=== PATIENT | male | born 1950 | race Caucasian/White ===

== ENCOUNTER → 2017-04-06 | Outpatient (CLI) | payer MEDICARE ==
[2017-04-07 08:55] LABS: ABSOLUTE BASOPHILS # (AUTO) 0.1 10^3/uL (0.0-0.2); ABSOLUTE LYMPHOCYTES (AUTO) 1.3 10^3/uL (0.5-4.7); ABSOLUTE MONOCYTES (AUTO) 0.8 10^3/uL (0.1-1.4); ABSOLUTE NEUT (AUTO) 4.8 10^3/uL (1.7-8.2); BASOPHILS % (AUTO) 1.4 % (0-2); EOSINOPHILS % (AUTO) 21.8 % (0-6); HEMATOCRIT 41.3 % (37.9-51.0); HEMOGLOBIN 13.5 g/dL (13.5-17.0); HGB HCT DIFFERENCE -0.8; LYMPHOCYTES % (AUTO) 14.9 % (13-45); MEAN CORPUSCULAR HEMOGLOBIN 29.9 pg (27.0-33.4); MEAN CORPUSCULAR HGB CONC 32.6 g/dL (32.0-36.0); MEAN CORPUSCULAR VOLUME 92 fl (80-97); MONOCYTES % (AUTO) 9.3 % (3-13); SEGMENTED NEUTROPHILS % (AUTO) 52.6 % (42-78); WHITE BLOOD COUNT 9.1 10^3/uL (4.0-10.5)
[2017-04-08 09:30] LABS: CALCIUM 9.2 mg/dL (8.4-10.2)
[2017-04-08 09:31] LABS: ALANINE AMINOTRANSFERASE 22 U/L (21-72); ALKALINE PHOSPHATASE 81 U/L (38-126); ANION GAP 10 (5-19); ASPARTATE AMINO TRANSFERASE 20 U/L (17-59); BILIRUBIN,DIRECT 0.4 mg/dL (0.0-0.4); BILIRUBIN,TOTAL 0.8 mg/dL (0.2-1.3); BLOOD UREA NITROGEN 21 mg/dL (7-20); CARBON DIOXIDE 26 mmol/L (22-30); CHLORIDE 109 mmol/L (98-107); CHOLESTEROL 164.18 mg/dL (0-200); CREATININE RESULT 1.14 mg/dL (0.52-1.25); GLUCOSE 89 mg/dL (75-110); POTASSIUM 4.8 mmol/L (3.6-5.0); SODIUM 144.6 mmol/L (137-145); TOTAL PROTEIN 7.2 g/dL (6.3-8.2); TRIGLYCERIDES 113 mg/dL (<150); VLDL CHOLESTEROL 22.6 mg/dL (10-31)
[2017-04-08 09:32] LABS: DIRECT LDL 84 mg/dL (<100); Direct HDL 48 mg/dL (>40)
== END ==
LOC: LAB 11:27
PROVIDERS: ATTEND Family Medicine
DX: E78.2 Mixed hyperlipidemia (principal); Z12.5 Encounter for screening for malignant neoplasm of prostate; I10 Essential (primary) hypertension; J44.1 Chronic obstructive pulmonary disease with (acute) exacerbation
CPT/HCPCS: 36415; 80053; 80061; 84153; 84443; 85025

== ENCOUNTER 2017-11-29 00:12 | Inpatient (IN) | payer MEDICARE ==
[2017-11-29] MEDS ORDERED: ALBUTEROL SULFATE 0.083% NEB 2.5 MG/3 ML AMPUL NEB ONE ×3 (00:19→02:31)
[2017-11-29] MEDS ORDERED: AZITHROMYCIN 250 MG TABLET PO ONE (00:20)
[2017-11-29] MEDS ORDERED: NORMAL SALINE 1000 ML 1,000 ML IV ONE (00:20)
--- NOTE | 2017-11-29 00:21 | ER Document Report ---
ED General - General Chief Complaint: Shortness Of Breath Stated Complaint: DIFFICULTY BREATHING Time Seen by Provider: 11/29/17 00:17 Notes: Patient is a 67-year-old male with a past medical history of COPD with baseline oxygen dependence at 2 L by nasal cannula at all times who presents with 6-7 hours of progressively worsening shortness of breath. Patient reports that he was using his nebulizers at home but that did not improve his symptoms. He states any form of exertion worsened his symptoms. He states this feels very similar to prior COPD exacerbations that he has had in the past. He denies any recent fever, nausea, vomiting, headache, neck pain or altered mental status. He has not seen his primary doctor regarding today's concerns. TRAVEL OUTSIDE OF THE [place] IN LAST 30 DAYS: No - Related Data Allergies/Adverse Reactions: No Known Allergies Allergy (Verified 03/25/16 12:01) Past Medical History - General Information source: Patient - Social History Smoking Status: Former Smoker Frequency of alcohol use: None Drug Abuse: None Family History: Reviewed & Not Pertinent - Past Medical History Cardiac Medical History: Reports: Hx Hypercholesterolemia, Hx Hypertension Denies: Hx Coronary Artery Disease, Hx Heart Attack Pulmonary Medical History: Reports: Hx COPD, Hx Pneumonia Denies: Hx Asthma, Hx Bronchitis, Hx Tuberculosis Neurological Medical History: Denies: Hx Cerebrovascular Accident, Hx Seizures Endocrine Medical History: Denies: Hx Graves' Disease GI Medical History: Reports: Hx Gastroesophageal Reflux Disease, Hx Hiatal Hernia Musculoskeltal Medical History: Reports Hx Arthritis, Reports Hx Multiple Sclerosis Traumatic Medical History: Reports: Hx Fractures - Right hand in the 90's Past Surgical History: Reports: Hx Tonsillectomy. Denies: Hx Herniorrhaphy, Hx Pacemaker - Immunizations Hx Diphtheria, Pertussis, Tetanus Vaccination: No Hx Pneumococcal Vaccination: 11/13/10 Review of Systems - Review of Systems Notes: Constitutional: Negative for fever. HENT: Negative for sore throat. Eyes: Negative for visual changes. Cardiovascular: Negative for chest pain. Respiratory: Positive for shortness of breath. Gastrointestinal: Negative for abdominal pain, vomiting or diarrhea. Genitourinary: Negative for dysuria. Musculoskeletal: Negative for back pain. Skin: Negative for rash. Neurological: Negative for headaches, weakness or numbness. 10 point ROS negative except as marked above and in HPI. Physical Exam - Vital signs Vitals: Resp Pulse Ox 24 H 97 01/09/18 00:16 11/29/17 00:16 Interpretation: Tachypneic Notes: PHYSICAL EXAMINATION: GENERAL: In mild respiratory distress otherwise well-appearing HEAD: Atraumatic, normocephalic. EYES: Pupils equal round and reactive to light, extraocular movements intact, sclera anicteric, conjunctiva are normal. ENT: nares patent, oropharynx clear without exudates. Moist mucous membranes. NECK: Normal range of motion, supple without lymphadenopathy LUNGS: Mildly diminished at the bases bilaterally. Faint expiratory wheezing in all lung flores. HEART: Regular rate and rhythm without murmurs ABDOMEN: Soft, nontender, normoactive bowel sounds. No guarding, no rebound. No masses appreciated. EXTREMITIES: Normal range of motion, no pitting or edema. No cyanosis. NEUROLOGICAL: No focal neurological deficits. Moves all extremities spontaneously and on command. PSYCH: Normal mood, normal affect. SKIN: Warm, Dry, normal turgor, no rashes or lesions noted. Course - Re-evaluation Re-evalutation: 11/29/17 00:20 Patient presents with mild tachypnea, wheezing in all lung flores, slightly diminished throughout but in only mild distress. He has very received magnesium , Solu-Medrol and 2 2 nebulizers prior to arrival. Given his ongoing wheezing he has been restarted on continuous nebulizers and will be reassessed frequently. 0040-patient continues to do well on nebulizers, lung exam relatively unchanged , continues with moderate tachypnea at 24 breaths per minute 11/29/17 01:35 Patient has begun to have marked worsening of his breathing over the last 10-15 minutes. He is now breathing 28-30 times a minute, markedly worsening wheezing in all lung flores. He is tripoding in the bed. Will be placed on BiPAP at this time. He has had a deterioration in his clinical status and is now considered to be critically ill. Will continue to reassess frequently. 11/29/17 02:22 Patient has had marked improvement on BiPAP. His heart rate continues to be mildly elevated relative to 10 presentation currently 114. However he is now saturating 90% on 40% FiO2, 12/6 settings. I will have discussed with Dr. Cohen who is accepted the patient for admission - Vital Signs Vital signs: Temp Pulse Resp BP Pulse Ox 19 118/80 97 11/29/17 01:01 01/09/18 01:01 11/29/17 01:01 - Laboratory Result Diagrams: 11/29/17 00:38 11/29/17 00:38 Laboratory results interpreted by me: 11/29/17 11/29/17 00:38 00:38 WBC 12.7 H Plt Count 479 H Lymphocytes % 11.0 L Eosinophils % 6.2 H Absolute Neutrophils 9.3 H Absolute Eosinophils 0.8 H BUN 34 H Glucose 138 H - Diagnostic Test Radiology reviewed: Image reviewed, Reports reviewed Radiology results interpreted by me: 11/29/17 02:23 Chest x-ray: Hyperinflated lungs but no acute infiltrate Critical Care Note - Critical Care Note Total time excluding time spent on procedures (mins): 35 Comments: Critical care time spent obtaining history from patient or surrogate, discussions with consultants, development of treatment plan with patient or surrogate, evaluation of patient's response to treatment, examination of patient , ordering and performing treatments and interventions, ordering and review of laboratory studies, re-evaluation of patient's condition, ordering and review of radiographic studies and review of old charts Discharge - Discharge Clinical Impression: Respiratory distress, COPD exacerbation Condition: Fair Disposition: ADMITTED INPATIENT Admitting Provider: [facility] Admitted: Telemetry
[2017-11-29 00:57] LABS: ABSOLUTE BASOPHILS # (AUTO) 0.1 10^3/uL (0.0-0.2); ABSOLUTE EOSINOPHILS # (AUTO) 0.8 10^3/uL (0.0-0.6); ABSOLUTE LYMPHOCYTES (AUTO) 1.4 10^3/uL (0.5-4.7); ABSOLUTE MONOCYTES (AUTO) 1.2 10^3/uL (0.1-1.4); ABSOLUTE NEUT (AUTO) 9.3 10^3/uL (1.7-8.2); ANION GAP 14 (5-19); BASOPHILS % (AUTO) 0.8 % (0-2); BLOOD UREA NITROGEN 34 mg/dL (7-20); CALCIUM 8.9 mg/dL (8.4-10.2); CARBON DIOXIDE 22 mmol/L (22-30); CHLORIDE 104 mmol/L (98-107); EOSINOPHILS % (AUTO) 6.2 % (0-6); GLUCOSE 138 mg/dL (75-110); HEMOGLOBIN 15.4 g/dL (13.5-17.0); MEAN CORPUSCULAR HEMOGLOBIN 30.2 pg (27.0-33.4); MEAN CORPUSCULAR HGB CONC 33.6 g/dL (32.0-36.0); MEAN CORPUSCULAR VOLUME 90 fl (80-97); MONOCYTES % (AUTO) 9.1 % (3-13); PLATELET COUNT 479 10^3/uL (150-450); POTASSIUM 4.1 mmol/L (3.6-5.0); RED CELL DISTRIBUTION WIDTH 12.8 % (11.5-14.0); SEGMENTED NEUTROPHILS % (AUTO) 72.9 % (42-78); SODIUM 139.8 mmol/L (137-145); TOTAL CELLS COUNTED % (AUTO) 100 %; WHITE BLOOD COUNT 12.7 10^3/uL (4.0-10.5)
--- NOTE | 2017-11-29 01:40 | RADIOLOGY REPORT (SQ) ---
EXAM DESCRIPTION: CHEST SINGLE VIEW CLINICAL HISTORY: sob COMPARISON: 03/01/2016 FINDINGS: Single frontal view of the chest. Apical scar calcification of the aortic arch. Heart is not enlarged. No consolidation, pneumothorax, or pleural effusion. No displaced rib fractures identified. Upper abdominal soft tissues are unremarkable. IMPRESSION: 1. No acute pulmonary process identified.
[2017-11-29] MEDS ORDERED: CEFTRIAXONE 1 GM/D5W RTU 1 GM/50 ML RTUPB IV ONE (02:22)
[2017-11-29] MEDS ORDERED: DILTIAZEM HCL 60 MG TABLET PO ONE (02:23)
[2017-11-29] MEDS ORDERED: IPRATROPIUM/ALBUTEROL 0.5-2.5 MG/3 ML AMPUL NEB PRN (02:24)
[2017-11-29] MEDS ORDERED: ACETAMINOPHEN 325 MG TABLET PO PRN (02:24)
[2017-11-29] MEDS ORDERED: CHLORPHENIRAMINE MALEATE 4 MG TABLET PO ONE (02:27)
[2017-11-29] MEDS ORDERED: KETOROLAC TROMETHAMINE INJ/PF 30 MG/1 ML SDV IV PRN (02:27)
[2017-11-29] MEDS ORDERED: HYDRALAZINE HCL INJ/PF 20 MG/1 ML SDV IV PRN (02:27)
[2017-11-29] MEDS ORDERED: DILTIAZEM HCL 60 MG TABLET PO SCH (02:30)
[2017-11-29] MEDS ORDERED: CEFEPIME 1 GM/D5W RTU 1 GM/50 ML RTUPB IV ONE (02:45)
[2017-11-29] MEDS ORDERED: FLUTICASONE NASAL SPRAY 50 MCG/SPRY 120 SPRAY/16 GM NASL ONE (02:45)
[2017-11-29 05:25] LABS: HEMOGLOBIN 14.4 g/dL (13.5-17.0); MEAN CORPUSCULAR HEMOGLOBIN 30.3 pg (27.0-33.4); MEAN CORPUSCULAR HGB CONC 33.6 g/dL (32.0-36.0); MEAN CORPUSCULAR VOLUME 90 fl (80-97); PLATELET COUNT 422 10^3/uL (150-450); RED BLOOD COUNT 4.76 10^6/uL (4.35-5.55); RED CELL DISTRIBUTION WIDTH 12.8 % (11.5-14.0); WHITE BLOOD COUNT 11.4 10^3/uL (4.0-10.5)
[2017-11-29 05:39] LABS: ANION GAP 15 (5-19); BLOOD UREA NITROGEN 32 mg/dL (7-20); CARBON DIOXIDE 19 mmol/L (22-30); CHLORIDE 107 mmol/L (98-107); GLUCOSE 172 mg/dL (75-110); POTASSIUM 4.4 mmol/L (3.6-5.0); SODIUM 141.2 mmol/L (137-145)
[2017-11-29 06:12] LABS: ABSOLUTE LYMPHOCYTES# (MANUAL) 0.3 10^3/uL (0.5-4.7); ABSOLUTE MONOCYTES # (MANUAL) 0.1 10^3/uL (0.1-1.4); ABSOLUTE NEUTROPHILS# (MANUAL) 10.9 10^3/uL (1.7-8.2); BASOPHILS % (MANUAL) 0 % (0-2); EOSINOPHILS % (MANUAL) 0 % (0-6); LYMPHOCYTES % (MANUAL) 3 % (13-45); MONOCYTES % (MANUAL) 1 % (3-13); SEGMENTED NEUTROPHILS % (MAN) 96 % (42-78); TOTAL CELLS COUNTED 100
[2017-11-29 06:13] LABS: PLATELET COMMENT ADEQUATE; RBC MORPHOLOGY COMMENT NORMO-CYTIC/CHROMIC
--- NOTE | 2017-11-29 06:41 | EKG REPORT ---
SEVERITY:- BORDERLINE ECG - SINUS TACHYCARDIA BORDERLINE PROLONGED QT INTERVAL : Confirmed by: Mir Landrum MD 29-Nov-2017 06:40:24
--- NOTE | 2017-11-29 07:42 | PDOC H&P ---
History of Present Illness Admission Date/PCP: 11/29/17 02:29 Patient complains of: Shortness of breath and nonproductive cough History of Present Illness: DMITRIY MCKEON is a 67 year old male with a past medical history of COPD with oxygen dependence, chronic bronchitis. He denies fever, chest pain, rhinorrhea , postnasal drip, sore throat or uncontrolled GERD. In the emergency room he is found to have tachypnea, wheeze, oxygen saturations in the mid 80s on room air with leukocytosis. He started on BiPAP at 35% FiO2, albuterol and Atrovent , empiric antibiotics refer to the hospitalist for admission. Patient denies infectious contacts, antibiotics or recent illness. He admits feeling better after treatment initiated in the emergency room. Current vital signs are unremarkable. Past Medical History Cardiac Medical History: Reports: Hyperlipidema, Hypertension Denies: Coronary Artery Disease, Myocardial Infarction Pulmonary Medical History: Reports: Chronic Obstructive Pulmonary Disease (COPD) , Pneumonia Denies: Asthma, Bronchitis, Tuberculosis Neurological Medical History: Denies: Seizures GI Medical History: Reports: Gastroesophageal Reflux Disease, Hiatal Hernia Musculoskeltal Medical History: Reports: Arthritis Hematology: Denies: Anemia Past Surgical History Past Surgical History: Reports: Tonsillectomy Denies: Herniorrhaphy, Pacemaker Social History Information Source: Patient, Emergency Med Personnel, [facility] Records Smoking Status: Never Smoker Frequency of Alcohol Use: None Hx Recreational Drug Use: No Hx Prescription Drug Abuse: No - Advance Directive Resuscitation Status: Full Code Family History Family History: Hypertension Parental Family History Reviewed: Yes Children Family History Reviewed: Yes Sibling(s) Family History Reviewed.: Yes Medication/Allergy Allergies/Adverse Reactions: No Known Allergies Allergy (Verified 03/25/16 12:01) Review of Systems Constitutional: ABSENT: chills, fever(s), headache(s), weight gain, weight loss Eyes: ABSENT: visual disturbances Ears: ABSENT: hearing changes Cardiovascular: ABSENT: chest pain, dyspnea on exertion, edema, orthropnea, palpitations Respiratory: ABSENT: cough, hemoptysis Gastrointestinal: ABSENT: abdominal pain, constipation, diarrhea, hematemesis, hematochezia, nausea, vomiting Genitourinary: ABSENT: dysuria, hematuria Musculoskeletal: ABSENT: joint swelling Integumentary: ABSENT: rash, wounds Neurological: ABSENT: abnormal gait, abnormal speech, confusion, dizziness, focal weakness, syncope Psychiatric: ABSENT: anxiety, depression, homidical ideation, suicidal ideation Endocrine: ABSENT: cold intolerance, heat intolerance, polydipsia, polyuria Hematologic/Lymphatic: ABSENT: easy bleeding, easy bruising Physical Exam Vital Signs: Temp Pulse Resp BP Pulse Ox 97.6 F 15 123/62 97 11/29/17 06:36 11/29/17 06:01 11/29/17 06:01 11/29/17 06:01 Intake & Output 11/27/17 11/28/17 11/29/17 11:59 11:59 11:59 Weight 61.36 kg General appearance: PRESENT: no acute distress, well-developed, well-nourished Head exam: PRESENT: atraumatic, normocephalic Eye exam: PRESENT: conjunctiva pink, EOMI, PERRLA. ABSENT: scleral icterus Ear exam: PRESENT: normal external ear exam Mouth exam: PRESENT: moist, tongue midline Neck exam: ABSENT: carotid bruit, JVD, lymphadenopathy, thyromegaly Respiratory exam: PRESENT: accessory muscle use, prolonged expiratory phas, retraction, symmetrical, tachypnea, wheezes. ABSENT: rales, rhonchi, stridor Cardiovascular exam: PRESENT: RRR. ABSENT: diastolic murmur, rubs, systolic murmur Pulses: PRESENT: normal dorsalis pedis pul Vascular exam: PRESENT: normal capillary refill GI/Abdominal exam: PRESENT: normal bowel sounds, soft. ABSENT: distended, guarding, mass, organolmegaly, rebound, tenderness Rectal exam: PRESENT: deferred Extremities exam: PRESENT: full ROM. ABSENT: calf tenderness, clubbing, pedal edema Neurological exam: PRESENT: alert, awake, oriented to person, oriented to place , oriented to time, oriented to situation, CN II-XII grossly intact. ABSENT: motor sensory deficit Psychiatric exam: PRESENT: appropriate affect, normal mood. ABSENT: homicidal ideation, suicidal ideation Skin exam: PRESENT: dry, intact, warm. ABSENT: cyanosis, rash Results Laboratory Results: 11/29/17 04:55 11/29/17 04:55 11/29/17 11/29/17 04:55 04:55 WBC 11.4 H RBC 4.76 Hgb 14.4 Hct 43.0 MCV 90 MCH 30.3 MCHC 33.6 RDW 12.8 Plt Count 422 Seg Neutrophils % Not Reportable Lymphocytes % Not Reportable Monocytes % Not Reportable Eosinophils % Not Reportable Basophils % Not Reportable Absolute Neutrophils Not Reportable Absolute Lymphocytes Not Reportable Absolute Monocytes Not Reportable Absolute Eosinophils Not Reportable Absolute Basophils Not Reportable Sodium 141.2 Potassium 4.4 Chloride 107 Carbon Dioxide 19 L Anion Gap 15 BUN 32 H Creatinine 1.13 Est GFR ( Amer) > 60 Est GFR (Non-Af Amer) > 60 Glucose 172 H Calcium 9.0 Impressions: Chest X-Ray 11/29/17 00:20 IMPRESSION: 1. No acute pulmonary process identified. Assessment & Plan - Diagnosis (1) Respiratory distress Is this a current diagnosis for this admission?: Yes Plan: Telemetry observation, supplemental oxygen, trial of BiPAP, prednisone with albuterol and Atrovent (2) COPD exacerbation Is this a current diagnosis for this admission?: Yes Plan: Secondary to acute on chronic bronchitis, empiric antibiotics, flutter valve. Follow-up CBC consider additional imaging. - Time Time Spent: 30 to 50 Minutes - Inpatient Certification Medical Necessity: Need Close Monitoring Due to Risk of Patient Decompensation
[2017-11-29] MEDS: IPRATROPIUM/ALBUTEROL 0.5-2.5 MG/3 ML AMPUL NEB SCH ×3 (08:29→20:45)
[2017-11-29] MEDS: HEPARIN SOD (PORCINE) 5,000 UNIT/ML 1 ML SYRINGE SUBCUT SCH ×3 (09:48→22:46)
[2017-11-29] MEDS: GUAIFENESIN 600 MG TABLET.SA PO SCH ×2 (09:56→22:21)
[2017-11-29] MEDS: CEFEPIME 1 GM/D5W RTU 1 GM/50 ML RTUPB IV SCH ×2 (09:57→22:20)
[2017-11-29] MEDS: ASPIRIN 81 MG TABLET, ENT COATED PO SCH (09:57)
[2017-11-29] MEDS ORDERED: PREDNISONE 20 MG TABLET PO SCH (10:00)
[2017-11-29] MEDS ORDERED: FLUTICASONE NASAL SPRAY 50 MCG/SPRY 120 SPRAY/16 GM NASL SCH (10:00)
[2017-11-29] MEDS: FLUTICASONE NASAL SPRAY 50 MCG/SPRY 120 SPRAY/16 GM NASL SCH ×2 (10:14→22:20)
[2017-11-29] MEDS ORDERED: PREDNISONE 20 MG TABLET PO ONE (21:58)
[2017-11-29] MEDS: BENZONATATE 100 MG CAPSULE PO PRN (22:19)
[2017-11-30] MEDS: IPRATROPIUM/ALBUTEROL 0.5-2.5 MG/3 ML AMPUL NEB SCH ×2 (02:22→07:57)
[2017-11-30] MEDS: HEPARIN SOD (PORCINE) 5,000 UNIT/ML 1 ML SYRINGE SUBCUT SCH (05:31)
[2017-11-30 06:07] LABS: HEMATOCRIT 41.1 % (37.9-51.0); HEMOGLOBIN 13.7 g/dL (13.5-17.0); MEAN CORPUSCULAR HEMOGLOBIN 30.2 pg (27.0-33.4); MEAN CORPUSCULAR HGB CONC 33.4 g/dL (32.0-36.0); MEAN CORPUSCULAR VOLUME 91 fl (80-97); PLATELET COUNT 412 10^3/uL (150-450); RED BLOOD COUNT 4.54 10^6/uL (4.35-5.55); RED CELL DISTRIBUTION WIDTH 13.2 % (11.5-14.0); WHITE BLOOD COUNT 16.9 10^3/uL (4.0-10.5)
[2017-11-30 06:22] LABS: ANION GAP 13 (5-19); BLOOD UREA NITROGEN 34 mg/dL (7-20); CALCIUM 10.2 mg/dL (8.4-10.2); CARBON DIOXIDE 21 mmol/L (22-30); CHLORIDE 108 mmol/L (98-107); GLUCOSE 131 mg/dL (75-110); POTASSIUM 5.3 mmol/L (3.6-5.0)
[2017-11-30 06:27] LABS: ABSOLUTE LYMPHOCYTES# (MANUAL) 0.7 10^3/uL (0.5-4.7); ABSOLUTE MONOCYTES # (MANUAL) 0.3 10^3/uL (0.1-1.4); ABSOLUTE NEUTROPHILS# (MANUAL) 15.9 10^3/uL (1.7-8.2); BASOPHILS % (MANUAL) 0 % (0-2); EOSINOPHILS % (MANUAL) 0 % (0-6); LYMPHOCYTES % (MANUAL) 4 % (13-45); MONOCYTES % (MANUAL) 2 % (3-13); SEGMENTED NEUTROPHILS % (MAN) 94 % (42-78); TOTAL CELLS COUNTED 100
[2017-11-30 06:29] LABS: BURR CELLS SLIGHT; PLATELET COMMENT ADEQUATE; SCHISTOCYTES SLIGHT; TEAR DROP CELLS SLIGHT; TOXIC GRANULATION 1+
[2017-11-30 08:11] VITALS: BP 119/62
[2017-11-30] MEDS: ASPIRIN 81 MG TABLET, ENT COATED PO SCH (09:07)
[2017-11-30] MEDS: GUAIFENESIN 600 MG TABLET.SA PO SCH (09:07)
[2017-11-30] MEDS: BENZONATATE 100 MG CAPSULE PO PRN (09:07)
[2017-11-30] MEDS: CEFEPIME 1 GM/D5W RTU 1 GM/50 ML RTUPB IV SCH (09:07)
[2017-11-30] MEDS: FLUTICASONE NASAL SPRAY 50 MCG/SPRY 120 SPRAY/16 GM NASL SCH (09:09)
--- NOTE | 2017-11-30 09:53 | DISCHARGE SUMMARY E ---
Discharge Summary NAME: DMITRIY MCKEON : 1950 AGE: 67Y ADMITTED: 11/29/2017 DISCHARGED: 11/30/2017 CODE STATUS: FULL CODE. PRIMARY CARE PROVIDER: Dr. Ford DISCHARGE DIAGNOSES: Includes: 1. Chronic obstructive pulmonary disease exacerbation. 2. Acute asthmatic bronchitis. 3. Hyperlipidemia. 4. Hypertension. 5. Gastroesophageal reflux disease due to a hiatal hernia. 6. Osteoarthritis. 7. Acute on chronic hypoxemic respiratory failure. DISCHARGE MEDICATIONS: Include: 1. Prednisone 60 mg taper. 2. Mucinex 1200 mg p.o. q. 12 hours, a total of 12 tablets with 0 refills. 3. Doxycycline 100 mg p.o. b.i.d., 10 tablets, 0 refills. 4. Tessalon Perles 100 mg p.o. q. 8 hours p.r.n., 10 tablets, 0 refills. 5. Spiriva 1 puff inhalation daily. 6. Multivitamin 1 tablet p.o. daily. 7. Advair 500/50 one puff inhalation q. 12 hours. 8. Flonase 1 spray nasally b.i.d. 9. Aspirin 81 mg p.o. daily. 10. Ventolin HFA 2 puffs inhalation q. 6 hours p.r.n. DIET: As tolerated. ACTIVITY: As tolerated. Recommend incentive spirometry as well as flutter valve at home. DIAGNOSTICS: Lab values are as follows: Hematology obtained on 11/29/2017: WBCs are 12.7, hemoglobin is 15.4, hematocrit is 40.6, platelet count is 479,000. Chemistry obtained on 11/30/2017: Sodium is 142, potassium 5.3, chloride is 108, carbon dioxide 21, BUN 34, creatinine is 1.17, glucose 131, calcium is 10.2. EKG obtained on 11/29/2017 reveals sinus tachycardia. Chest x-ray obtained on 11/29/2017 reveals no acute cardiopulmonary process identified. PHYSICAL EXAMINATION: GENERAL: On examination, the patient is a well-developed, well-nourished 67-year-old male who is awake, alert, and oriented to person, place, time, and situation. He is verbal, conversational, does not appear to be in any acute distress. VITAL SIGNS: Temperature is 97.5, pulse 80, respirations 18, blood pressure is 119/62, oxygen saturation is 100% on room air. SKIN: Warm and dry. No rash. Not diaphoretic. HEENT: Pupils equal, round, and reactive to light and accommodation. Conjunctiva is pink. There is no evidence of JVP. CARDIOVASCULAR SYSTEM: Heart is regular. There is no murmur or rub. CHEST: Diminished, symmetrical, unlabored with faint wheezes noted in upper lung flores. PSYCHIATRIC: Appropriate affect, pleasant mood. ABDOMEN: Soft, nontender, nondistended. EXTREMITIES: No clubbing, cyanosis, edema. HISTORY OF PRESENT ILLNESS: The patient is a 67-year-old male with a past medical history of chronic obstructive pulmonary disease and hypertension. The patient presented to the emergency department with a chief complaint of shortness of breath and a nonproductive cough. The patient presented with significant tachypnea, wheezes with oxygen saturation in the mid 80s on room air with leukocytosis. The patient was started on a BiPAP in the emergency department at 35% FiO2 and was given Duonebs. The patient's condition did improve. Upon interview, the patient denied any fevers, chest pain, rhinorrhea, postnasal drip, sore throat, or uncontrolled GERD. Given that the patient did require BiPAP, he was referred to the hospitalist for admission and management. HOSPITAL COURSE: The patient was admitted to continuous telemetry unit. The patient was placed on steroids as well as antibiotic coverage. The patient responded very well to treatment, and within 24 hours, the patient was back on room air, able to fully complete sentences, was able to ambulate without significant dyspnea. The patient does admit to a strong cough that has not been producing any sputum. The patient has been participating in incentive spirometry as well as flutter valve. The patient's symptoms are "1000 times better" and the patient is quite eager for discharge. DISCHARGE PLANNING: The patient is to follow up with his primary care provider, Dr. Ford, within 1-2 weeks for hospital followup. Time spent on this discharge including assessment, plan, physical examination, patient education, review of records is 20 minutes. DICTATING PHYSICIAN: YEISON ZALDIVAR NP [id number] PHY#: [id number] ID: [id number] JOB#: [id number] ACCT: [id number] cc:Nickie PRAKASH NP >
[2017-11-30] MEDS ORDERED: FLUTICASONE NASAL SPRAY 50 MCG/SPRY 120 SPRAY/16 GM NASL SCH (10:00)
[2017-11-30] MEDS ORDERED: ASPIRIN 81 MG TABLET, CHEWABLE PO SCH (10:00)
[2017-11-30] MEDS ORDERED: FLUTICASONE/SALMETEROL DISKUS 500-50 MCG/DOSE IH SCH (10:00)
[2017-11-30] MEDS ORDERED: MULTIVITAMIN TABLET PO SCH (10:00)
[2017-11-30] MEDS ORDERED: PREDNISONE 20 MG TABLET PO SCH ×2 (10:00)
[2017-11-30] MEDS ORDERED: TIOTROPIUM BROMIDE DPI 5 CAP/KIT (18 MCG/CAP) IH SCH (10:00)
== END 2017-11-30 11:30 | disposition home or self-care (01) | DRG 190 ==
LOC: ER 00:12 → EH 02:29 → 4S 14:00
PROVIDERS: ADMIT Internal Medicine; ATTEND Internal Medicine
DX: J44.1 Chronic obstructive pulmonary disease with (acute) exacerbation (principal); J96.21 Acute and chronic respiratory failure with hypoxia; J45.901 Unspecified asthma with (acute) exacerbation; J44.0 Chronic obstructive pulmonary disease with (acute) lower respiratory infection; J20.9 Acute bronchitis, unspecified; E78.5 Hyperlipidemia, unspecified; I10 Essential (primary) hypertension; K21.9 Gastro-esophageal reflux disease without esophagitis; M19.90 Unspecified osteoarthritis, unspecified site; K44.9 Diaphragmatic hernia without obstruction or gangrene; Z99.81 Dependence on supplemental oxygen; Z87.891 Personal history of nicotine dependence
CPT/HCPCS: 36415; 71045; 80048; 85025; 93005; 93010; 94640; 94660; 94667; 94668; 94799; 96360; 99291; J0692; J1644; J3490; J7030; J7512; J7620

== ENCOUNTER → 2018-01-19 | Outpatient (CLI) | payer MEDICARE ==
--- NOTE | 2018-01-20 12:13 | RADIOLOGY REPORT (SQ) ---
EXAM DESCRIPTION: MRI HEAD COMBO COMPLETED DATE/TIME: 01/19/2018 10:44 pm REASON FOR STUDY: UNSPECIFIED VISUAL LOSS H54.7 UNSPECIFIED VISUAL LOSS COMPARISON: None. TECHNIQUE: Multiplanar imaging includes noncontrasted T1, T2, FLAIR, Diffusion with ADC map and post gadolinium contrast T1 sequences. Images stored on PACS. CONTRAST TYPE AND DOSE: 10 mL multi RENAL FUNCTION: GFR > 60. LIMITATIONS: None. FINDINGS: ANATOMY: No anomalies. Normal vascular flow voids. Pituitary fossa normal. CSF SPACES: Mild atrophy-induced prominence of CSF spaces and ventricles. CEREBRUM: High-signal intensity lesions scattered throughout the white matter on FLAIR imaging with d istribution suggesting chronic micro-vascular ischemic change. No evidence of hemorrhage, mass, extra axial fluid collection or acute ischemic change. No enhancing lesions. POSTERIOR FOSSA: No signal alteration. No hemorrhage. No edema, masses, or mass effect. Internal eoldia tory canals, cerebello-pontine angles, mastoids normal. No enhancing lesions. ORBITS: No masses. Globes normal. PARANASAL SINUSES: No fluid levels. Mucosa normal. DIFFUSION: Normal. No evidence of recent infarct. OTHER: No other significant finding. IMPRESSION: Mild ATROPHY AND CHRONIC MICRO-VASCULAR ISCHEMIC CHANGES. OTHERWISE UNREMARKABLE MRI OF THE BRAIN WITHOUT AND WITH INTRAVENOUS GADOLINIUM CONTRAST. EVIDENCE OF ACUTE STROKE: NO. TECHNICAL DOCUMENTATION: JOB ID: [id number] Seen- All Rights Reserved Reading location - IP/workstation name: [email or web address]
== END ==
LOC: RAD 20:10
PROVIDERS: ATTEND Family Medicine
DX: H54.7 Unspecified visual loss (principal); G31.9 Degenerative disease of nervous system, unspecified
CPT/HCPCS: 70553; 82565

== ENCOUNTER → 2018-04-25 | Outpatient (CLI) | payer MEDICARE ==
--- NOTE | 2018-04-25 13:40 | RADIOLOGY REPORT (SQ) ---
EXAM DESCRIPTION: CHEST 2 VIEWS COMPLETED DATE/TIME: 04/25/2018 1:30 pm REASON FOR STUDY: R06.89 OTHER ABNORMALITIES OF BREATHING COMPARISON: 03/01/2016. EXAM PARAMETERS: NUMBER OF VIEWS: two views TECHNIQUE: Digital Frontal and Lateral radiographic views of the chest acquired. RADIATION DOSE: NA LIMITATIONS: none FINDINGS: LUNGS AND PLEURA: No opacities, masses or pneumothorax. No pleural effusion. MEDIASTINUM AND HILAR STRUCTURES: No masses or contour abnormalities. HEART AND VASCULAR STRUCTURES: Heart normal size. No evidence for failure. BONES: No acute findings. HARDWARE: None in the chest. OTHER: No other significant finding. IMPRESSION: NO ACUTE RADIOGRAPHIC FINDING IN THE CHEST. TECHNICAL DOCUMENTATION: JOB ID: [id number] [employer]- All Rights Reserved Reading location - IP/workstation name: [email or web address]
== END ==
LOC: RAD 13:20
PROVIDERS: ATTEND Nurse Practitioner Acute Care
DX: R06.89 Other abnormalities of breathing (principal)
CPT/HCPCS: 71046

== ENCOUNTER 2018-05-31 08:38 | Day surgery (SDC) | payer MEDICARE ==
[~2018-05-31 08:38] MED LIST: DIPHENHYDRAMINE HCL 50 MG/ML VIAL ONE; EPINEPHRINE INJ 1 MG/10 ML DISP.SYRIN ONE; FENTANYL CITRATE INJ/PF 100 MCG/2 ML AMPUL ONE; FLUMAZENIL INJ 0.5 MG/5 ML VIAL ONE; GLUCAGON,HUMAN RECOMB 1 MG INJ ONE; NALOXONE HCL INJ/PF 0.4 MG/1 ML SDV ONE; ONDANSETRON HCL INJ/PF 4 MG/2 ML SDV ONE
[2018-05-31] MEDS: MIDAZOLAM 2 MG/2 ML INJ ONE ×3 (09:14→09:19)
--- NOTE | 2018-05-31 09:27 | Operative Report ---
Operative Report DATE OF SURGERY: 05/31/18 Operative Report: The risks benefits and alternatives of the procedure explained to the patient in detail and informed consent is obtained.A GIF Olympus video scope was inserted into the patient's mouth and hypopharynx ,the esophagus is identified intubated and insufflated, the scope was then advanced through the esophagus stomach and duodenum ,retroflexion maneuver is done ,the esophagus stomach and first and second portions of the duodenum examined PREOPERATIVE DIAGNOSIS: Dysphagia POSTOPERATIVE DIAGNOSIS: Esophagitis, esophageal ulcer. Schatzki's ring which is broken. Hiatal hernia. Gastritis status post biopsy. Duodenitis OPERATION: EGD with biopsy SURGEON: JEREMIAH NEGRON ANESTHESIA: Moderate Sedation - 4 mg of Versed, 25 mcg of fentanyl. Conscious sedation monitoring time 30 minutes. COMPLICATIONS: None. ESTIMATED BLOOD LOSS: None. INTRAOPERATIVE FINDINGS: As noted above. PROCEDURE: Patient tolerated the procedure well. No immediate postprocedure complications are noted. Patient discharged in good condition. Discharge date 05/31/2018. Discharge diet: Regular. Discharge activity: Regular. 2-3 week follow-up to discuss findings. We will wait on the pathology. Patient is instructed to go to the office or proceed to the emergency room should there be any further problems or questions.
[2018-05-31 10:35] VITALS: BP 125/84
== END 2018-05-31 10:40 | disposition home or self-care (01) ==
LOC: END 08:38
PROVIDERS: ATTEND Internal Medicine Gastroenterology
PROC: 0DB68ZX Excision of Stomach, Via Natural or Artificial Opening Endoscopic, Diagnostic (ICD-10-PCS; 2018-05-31)
PROC: 0DB58ZX Excision of Esophagus, Via Natural or Artificial Opening Endoscopic, Diagnostic (ICD-10-PCS; principal; 2018-05-31 09:00)
DX: K29.50 Unspecified chronic gastritis without bleeding (principal); K21.0 Gastro-esophageal reflux disease with esophagitis; K22.2 Esophageal obstruction; K44.9 Diaphragmatic hernia without obstruction or gangrene; K29.80 Duodenitis without bleeding; K22.10 Ulcer of esophagus without bleeding; J44.9 Chronic obstructive pulmonary disease, unspecified; R13.10 Dysphagia, unspecified; I10 Essential (primary) hypertension
CPT/HCPCS: 43239; 88305 ×2; J2250; J3010; J0171; J1200; J1610; J2310; J2405; J3490

== ENCOUNTER 2018-10-21 03:04 | Emergency (ER) | payer MEDICARE ==
--- NOTE | 2018-10-21 03:25 | ER Document Report ---
ED General - General Chief Complaint: Pain Stated Complaint: MUSCLE SPASMS Time Seen by Provider: 10/21/18 03:21 Notes: Patient is a 68-year-old male who presents with complaints of cramping pain in his chest and abdomen. Said it woke him from sleep tonight. He says it feels like muscles are cramping very tightly in his chest and abdomen. He also has a bit of pain into his legs. No dizziness. No syncope. No difficulty breathing. No history of coronary disease. No history of aortic aneurysms. No recent vomiting or diarrhea. No history of similar pain in the past. No other complaints at this time. No recent changes in medications. TRAVEL OUTSIDE OF THE [place] IN LAST 30 DAYS: No - Related Data Allergies/Adverse Reactions: No Known Allergies Allergy (Verified 05/31/18 08:54) Past Medical History - Social History Smoking Status: Never Smoker Frequency of alcohol use: None Drug Abuse: None Family History: Hypertension - Past Medical History Cardiac Medical History: Reports: Hx Hypercholesterolemia, Hx Hypertension Denies: Hx Coronary Artery Disease, Hx Heart Attack Pulmonary Medical History: Reports: Hx COPD, Hx Pneumonia Denies: Hx Asthma, Hx Bronchitis, Hx Tuberculosis Neurological Medical History: Denies: Hx Cerebrovascular Accident, Hx Seizures Endocrine Medical History: Denies: Hx Graves' Disease Renal/ Medical History: Denies: Hx Peritoneal Dialysis GI Medical History: Reports: Hx Gastroesophageal Reflux Disease, Hx Hiatal Hernia Musculoskeletal Medical History: Reports Hx Arthritis, Reports Hx Multiple Sclerosis Traumatic Medical History: Reports: Hx Fractures - Right hand in the 90's Past Surgical History: Reports: Hx Tonsillectomy. Denies: Hx Herniorrhaphy, Hx Pacemaker - Immunizations Hx Diphtheria, Pertussis, Tetanus Vaccination: No Hx Pneumococcal Vaccination: 11/13/10 Review of Systems - Review of Systems Notes: My Normal Review Basic REVIEW OF SYSTEMS: CONSTITUTIONAL : Denies fever, chills, or sweats. Denies recent illness. EENT: Denies eye, ear, throat, or mouth pain or symptoms. Denies nasal or sinus congestion. CARDIOVASCULAR: Cramping pain in chest RESPIRATORY: Denies cough, cold, or chest congestion. Denies shortness of breath, difficulty breathing, or wheezing. GASTROINTESTINAL: Camping pain in abdominal pain. Denies nausea, vomiting, or diarrhea. Denies constipation. Last BM: MUSCULOSKELETAL: Denies neck or back pain or joint pain or swelling. SKIN: Denies rash or skin lesions. NEUROLOGICAL: Denies altered mental status or loss of consciousness. Denies headache. Denies weakness or paralysis or loss of use of either side. Denies problems with gait or speech. Denies sensory or motor loss. ALL OTHER SYSTEMS REVIEWED AND NEGATIVE. Physical Exam - Vital signs Vitals: Pulse Ox 95 10/21/18 03:20 - Notes Notes: General Appearance: Well nourished, alert, cooperative, no acute distress, moderate obvious discomfort. Vitals: reviewed, See vital signs table. Head: no swelling or tenderness to the head Eyes: PERRL, EOMI, Conjuctiva clear Mouth: No decreasd moisture Throat: No tonsillar inflammation, No airway obstruction, No lymphadenopathy Neck: Supple, no neck tenderness, No thyromegaly Lungs: No wheezing, No rales, No rhonci, No accessory muscle use, good air exchange bilaterally. Heart: Normal rate, Regular rythm, No murmur, no rub Abdomen: Normal BS, soft, No rigidity, no reproducible abdominal tenderness to palpation., No guarding, no rebound, no abdominal masses, no organomegaly. Side ultrasound does not show evidence of aortic aneurysm. Extremities: strength 5/5 in all extremities, good pulses in all extremities, no swelling or tenderness in the extremities, no edema. Pulses in all 4 extremities are equal and 2+. Skin: warm, dry, appropriate color, no rash Neuro: speech clear, oriented x 3, normal affect, responds appropriately to questions. Cranial nerves II through XII are intact. Distal sensation intact. Patient moves all extremities without difficulty. Course - Re-evaluation Re-evalutation: 10/21/18 03:24 Patient presents with severe cramping in his abdomen and chest. He says it feels like muscle cramps however he is never had this type of sensation before. He has no history of cardiac disease. I did ultrasound to look at his aorta to rule out large aneurysm. Bedside ultrasound does not show evidence of large a abdominal aortic aneurysm. Patient says pain started to subside. I have ordered baseline blood work. We will give him some fluids. Patient is not tachycardic or hypertensive and therefore I think dissection is less likely at this time therefore I feel we can refer laboratory workup to be completed before going to a CT scan. Patient's peripheral pulses are equal. 10/21/18 05:05 Patient's lab work came back without any concerning findings. He was still having pain and nitro did not make any difference in his pain to 4 g morphine. This relieved most of his pain. He still has some intermittent abdominal pain and cramping he still describes it as a cramping type sensation. Is not having any recurrent chest pain at all at this time. Being that he has the pain with his abdomen chest and his labs are negative I did go forward CTA. I do not see evidence of dissection and reviewing the CT myself. We will waiting for the radiologist to finish reading. 10/21/18 05:48 Reevaluation patient is doing well but says her to have some recurrent cramping that again is 1 the right side of his abdominal wall and also into his right calf muscle now. Says he really does not like a muscular cramp. CTA of the chest and pelvis completely normal. No evidence of kidney stones. No evidence of dissection. There is no evidence of infection or inflammation in the bowel. I will repeat his troponin just to make sure this is remaining negative. If this remains negative then he will likely be discharged home with medications to help against muscle spasms with encouragement to follow-up closely with his primary care doctor. He does not have any focal neurologic deficits on exam. Is no numbness. There is no evidence suggest that this is nerve impingement especially since the pain went up to his chest as well. Also because pain was initially bilateral this would be unlikely. Patient's vital signs have remained normal. Vital signs her heart rate is 71, pulse ox of 96%, blood pressure is 124/72. 10/21/18 05:49 10/21/18 07:06 Reevaluation patient is feeling much better. He says he started have some pain come back now again is still just more on the right side down the right flank and into the right leg and into the calf muscle. Each time the pain comes back it seems to come back with less intensity. I informed patient that I do not know the exact cause of why he is having this pain. It could be muscle cramping but I am not 100% sure. His vital signs are completely normal and his workup is normal and therefore I feel he safe to be discharged home; however, I informed him I will give him a few pain pills to go home with but if he still having recurrent pain after 24 hours he must return to the ER for reevaluation. Patient is very understanding of this and agrees with plan. Dictation of this chart was performed using voice recognition software; therefore, there may be some unintended grammatical errors. - Vital Signs Vital signs: Temp Pulse Resp BP Pulse Ox 97.7 F 16 124/72 96 10/21/18 05:01 10/21/18 05:01 10/21/18 05:01 10/21/18 05:01 - Laboratory Result Diagrams: 10/21/18 03:10 10/21/18 03:10 Laboratory results interpreted by me: 10/21/18 10/21/18 03:10 03:10 Plt Count 525 H Lymphocytes % 9.9 L Eosinophils % 10.2 H Absolute Eosinophils 1.0 H BUN 28 H Creatinine 1.39 H Est GFR (Non-Af Amer) 51 L Glucose 152 H - EKG Interpretation by Me Additional EKG results interpreted by me: 10/21/18 03:53 EKG is reviewed and interpreted by me. EKG shows sinus rhythm with a rate of [address] segment elevation or depression. No ischemic T wave inversions. NV interval, QRS duration are within normal range. QT interval is borderline. Old EKG for comparison is from November 29, 2017. Discharge - Discharge Clinical Impression: Chest pain Qualifiers: Chest pain type: unspecified Qualified Code(s): R07.9 - Chest pain, unspecified Abdominal pain Qualifiers: Abdominal location: unspecified location Qualified Code(s): R10.9 - Unspecified abdominal pain Additional Instructions: Your CT scan did show a 9mm pulmonary nodule on your right lung on CT scan and a 3.5 mm nodule on your left lung. It is important to inform your doctor about this so they can arrange for repeat CT scan in 3-[address] scans did not show any evidence of infection in your chest or abdomen. Your aorta did not show any evidence of tearing or aneurysm. Your work up looking at your heart did not show any concerning findings. As discussed with you: The exact cause of why you are having this cramping type pain and really is not 100% clear. It could be actual muscle cramping however I cannot tell this for sure. I again do not see any dangerous causes of your pain and therefore we will discharge you home, but we want you to return to the ER in 24 hours if you are still having any recurrence of pain whatsoever. I have prescribed you some pain medicine. It is called Sanderson. Please be aware that Sanderson does have Tylenol ( acetaminophen) in it. Please make sure you do not take more than 4000 mg of acetaminophen a day. Do not drive or care for children after you have taken this medication they will make you sleepy and sometimes impair judgment. Please return to the ER immediately if you have worsening pain, fevers, vomiting , or feel that you are worsening in any way. Referrals: ALBAN BARRIGA DO [Primary Care Provider] - 10/23/18
[2018-10-21 03:33] LABS: ABSOLUTE BASOPHILS # (AUTO) 0.1 10^3/uL (0.0-0.2); ABSOLUTE NEUT (AUTO) 7.1 10^3/uL (1.7-8.2); BASOPHILS % (AUTO) 0.7 % (0-2); EOSINOPHILS % (AUTO) 10.2 % (0-6); HEMATOCRIT 39.7 % (37.9-51.0); HEMOGLOBIN 13.7 g/dL (13.5-17.0); LYMPHOCYTES % (AUTO) 9.9 % (13-45); MEAN CORPUSCULAR HGB CONC 34.6 g/dL (32.0-36.0); MEAN CORPUSCULAR VOLUME 90 fl (80-97); MONOCYTES % (AUTO) 9.8 % (3-13); PLATELET COUNT 525 10^3/uL (150-450); RED BLOOD COUNT 4.43 10^6/uL (4.35-5.55); SEGMENTED NEUTROPHILS % (AUTO) 69.4 % (42-78); TOTAL CELLS COUNTED % (AUTO) 100 %; WHITE BLOOD COUNT 10.2 10^3/uL (4.0-10.5)
[2018-10-21] MEDS: NITROGLYCERIN 0.4 MG/TAB 25 TAB/BOTTLE SL PRN ×2 (03:34→03:56)
[2018-10-21 03:48] LABS: ALANINE AMINOTRANSFERASE 21 U/L (21-72); ALBUMIN 4.3 g/dL (3.5-5.0); ALKALINE PHOSPHATASE 86 U/L (38-126); ANION GAP 17 (5-19); ASPARTATE AMINO TRANSFERASE 27 U/L (17-59); BILIRUBIN,DIRECT 0.3 mg/dL (0.0-0.4); BILIRUBIN,TOTAL 0.8 mg/dL (0.2-1.3); BLOOD UREA NITROGEN 28 mg/dL (7-20); CALCIUM 9.8 mg/dL (8.4-10.2); CARBON DIOXIDE 27 mmol/L (22-30); CHLORIDE 100 mmol/L (98-107); GLUCOSE 152 mg/dL (75-110); POTASSIUM 4.4 mmol/L (3.6-5.0); SODIUM 144.2 mmol/L (137-145); TOTAL PROTEIN 7.1 g/dL (6.3-8.2)
--- NOTE | 2018-10-21 03:56 | RADIOLOGY REPORT (SQ) ---
EXAM DESCRIPTION: XR CHEST 1 VIEW COMPLETED DATE/TME: 10/21/2018 03:21 CLINICAL HISTORY: 68 years, Male, chest pain COMPARISON: [id number] chest x-ray NUMBER OF VIEWS: 1 TECHNIQUE: Frontal view the chest LIMITATIONS: None. FINDINGS: Heart size is normal. Lungs are hyperinflated but clear. No pneumothorax. Mild atheromatous change thoracic aorta. IMPRESSION: Underlying hyperinflation. Lungs are clear copyright 2010 [employer]- All Rights Reserved
[2018-10-21] MEDS ORDERED: MORPHINE SULFATE 10 MG/ML INJ IV ONE ×2 (04:09→05:45)
--- NOTE | 2018-10-21 05:45 | RADIOLOGY REPORT (SQ) ---
EXAM DESCRIPTION: CT CHEST, abdomen, and pelvis ANGIOGRAPHY WITHOUT THEN WITH IV CONTRAST COMPLETED DATE/TME: 10/21/2018 04:08 CLINICAL HISTORY: 68 years, Male, chest and abdominal pain COMPARISON: None. TECHNIQUE: 1246 Images stored on PACS. All CT scanners at this facility use dose modulation, iterative reconstruction, and/or weight based dosing when appropriate to reduce radiation dose to as low as reasonably achievable (ALARA). Axial images were obtained with coronal and sagittal MIPS reconstructions [facility]: Dose Right [facility]: CareDose [facility]: Dose Right [facility]: Teradose 4D [facility]: [employer] LIMITATIONS: None. FINDINGS: CTA chest: The mediastinal vasculature enhances normally. No intraluminal filling defect to suggest pulmonary embolus. Mild ectasia of the ascending thoracic aorta. Maximal diameter is normal at the level of the pulmonary trunk measuring 3.2 cm AP by 3.3 cm transverse. No periaortic fluid collection or evidence for dissection. Coronary artery calcification. No mediastinal or hilar adenopathy. The heart is not enlarged. Osseous structures of the thorax are grossly intact. No pneumothorax. Minor biapical pleural thickening. The visualized airways are patent. Groundglass nodule in the posterior right lung base, measuring 9.6 mm. Subpleural groundglass nodule in the posterior left lung base measuring 3.6 mm. CTA abdomen/pelvis: Osseous structures of the abdomen/pelvis are grossly intact. The liver, spleen, adrenal glands, pancreas, kidneys are unremarkable. Incomplete rotation of the left kidney is noted. Subcentimeter left renal cyst. The gallbladder is present. Small hiatal hernia. No free air or free fluid. No gross evidence for bowel obstruction. Enlargement of the prostate. Correlate with PSA levels. Sigmoid diverticulosis. No CT evidence for diverticulitis. Negative for abdominal aortic aneurysm or dissection. Mild atheromatous changes at the origin of the celiac axis and superior mesenteric arteries. The SMA is widely patent. Approximately 50% luminal narrowing at the origin of the celiac axis. The inferior mesenteric artery is widely patent. Widely patent renal arteries bilaterally. The bilateral common, internal and external iliac arteries are widely patent. The visualized common femoral and superficial femoral arteries are widely patent. IMPRESSION: Negative for thoracic or abdominal aortic aneurysm or dissection. Ectasia of the ascending thoracic aorta. Atheromatous changes of the abdominal aorta causing approximately 50% luminal narrowing at the origin of the celiac axis. Sigmoid diverticulosis. No CT evidence for diverticulitis. Enlargement of the prostate. Correlate with PSA levels. Pulmonary nodules in the lung bases bilaterally. Refer to below Fleischner Society criteria for further evaluation. 2017 Fleischner Society Recommendations for Multiple Solid Lung Nodules Follow-Up base on size (average of long- and short-axis diameters). Use most suspicious nodule for followup. Nodule Size <6 mm Low-Risk Patient: No routine follow-up Nodule Size <6 mm High-Risk Patient: Optional CT at 12 months Nodule Size 6-8 mm Low-Risk Patient: CT at 3-[address] at 18-24 months Nodule Size 6-8 mm High-Risk Patient: CT at 3-6 months then at 18-24 months Nodule Size (mm) >8 Low-Risk Patient: CT at 3-6 months, then consider CT at 18-24 months Nodule Size (mm) >8 High-Risk Patient: CT at 3-6 months, then at 18-24 months TECHNICAL DOCUMENTATION: Quality ID # 436: Final reports with documentation of one or more dose reduction techniques (e.g., Automated exposure control, adjustment of the mA and/or kV according to patient size, use of iterative reconstruction technique) copyright 2011 [employer]- All Rights Reserved
[2018-10-21] MEDS ORDERED: HYDROCODONE/ACETAMINOPHEN 5-325 MG TABLET PO ONE (07:06)
[2018-10-21 07:27] VITALS: BP 117/64
--- NOTE | 2018-10-21 07:55 | EKG REPORT ---
SEVERITY:- BORDERLINE ECG - SINUS RHYTHM BORDERLINE RIGHT AXIS DEVIATION BORDERLINE PROLONGED QT INTERVAL : Confirmed by: Mir Landrum MD 21-Oct-2018 07:54:52
== END 2018-10-21 08:53 | disposition home or self-care (01) ==
LOC: ER 03:04
DX: R07.9 Chest pain, unspecified (principal); R10.9 Unspecified abdominal pain; M79.18 Myalgia, other site; I10 Essential (primary) hypertension; J44.9 Chronic obstructive pulmonary disease, unspecified; Z87.19 Personal history of other diseases of the digestive system
CPT/HCPCS: 93005; 96376; 99285; 96374; 36415; 83735; 85025; 80053; 84484; 71045; 71275; 74174; 93010; J2270; A9270

== ENCOUNTER 2018-10-25 11:17 | Emergency (ER) | payer MEDICARE ==
[2018-10-25] MEDS ORDERED: IPRATROPIUM/ALBUTEROL 0.5-2.5 MG/3 ML AMPUL NEB ONE ×2 (11:43→14:33)
[2018-10-25] MEDS ORDERED: METHYLPREDNISOLONE INJ 125 MG/2 ML SDV IV ONE (11:43)
--- NOTE | 2018-10-25 11:44 | ER Document Report ---
ED Medical Screen (RME) - General TRAVEL OUTSIDE OF THE [place] IN LAST 30 DAYS: No <TIGRE MELCHOR - Last Filed: 10/25/18 11:44> <GEORGIA HINTON - Last Filed: 10/25/18 16:18> - General Chief Complaint: Chest Pain Stated Complaint: SHORTNESS OF BREATH, BP ISSUE Time Seen by Provider: 10/25/18 11:39 Notes: 68 years old male with a chronic COPD recently was in the hospital first of this month returned today with increasing shortness of breath and wheezing. Coughing up productive cough which is yellow-green in color. No fever chills or other constitutional symptoms. (TIGRE MELCHOR) - Related Data Allergies/Adverse Reactions: No Known Allergies Allergy (Verified 10/25/18 11:20) Past Medical History - Past Medical History Cardiac Medical History: Reports: Hx Hypercholesterolemia, Hx Hypertension Denies: Hx Coronary Artery Disease, Hx Heart Attack Pulmonary Medical History: Reports: Hx COPD, Hx Pneumonia Denies: Hx Asthma, Hx Bronchitis, Hx Tuberculosis Neurological Medical History: Denies: Hx Cerebrovascular Accident, Hx Seizures Endocrine Medical History: Denies: Hx Graves' Disease Renal/ Medical History: Denies: Hx Peritoneal Dialysis GI Medical History: Reports: Hx Gastroesophageal Reflux Disease, Hx Hiatal Hernia Musculoskeltal Medical History: Reports Hx Arthritis, Reports Hx Multiple Sclerosis Traumatic Medical History: Reports: Hx Fractures - Right hand in the 90's Past Surgical History: Reports: Hx Tonsillectomy. Denies: Hx Herniorrhaphy, Hx Pacemaker - Immunizations Hx Diphtheria, Pertussis, Tetanus Vaccination: No History of Influenza Vaccine for 08/2017 - 01/2018 Season: Yes Influenza Administration Date for 08/2017 - 01/2018 Season: 10/03/18 <TIGRE MELCHOR - Last Filed: 10/25/18 11:44> - Vital signs Vitals: Temp Pulse Resp BP Pulse Ox 97.8 F 96 18 132/85 H 94 10/25/18 11:27 10/25/18 11:27 10/25/18 11:27 10/25/18 11:27 10/25/18 11:27 Course - Laboratory Result Diagrams: 10/25/18 12:30 10/25/18 12:30 <GEORGIA HINTON - Last Filed: 10/25/18 16:18> - Vital Signs Vital signs: Temp Pulse Resp BP Pulse Ox 97.8 F 96 19 132/85 H 97 10/25/18 11:27 10/25/18 11:27 10/25/18 15:40 10/25/18 11:27 10/25/18 15:40 - Laboratory Laboratory results interpreted by me: 10/25/18 10/25/18 12:30 12:30 Plt Count 522 H Lymphocytes % 11.1 L Eosinophils % 20.8 H Absolute Eosinophils 1.9 H Carbon Dioxide 33 H BUN 21 H Creatine Kinase 232 H Doctor's Discharge <TIGRE MELCHOR - Last Filed: 10/25/18 11:44> <GEORGIA HINTON - Last Filed: 10/25/18 16:18> - Discharge Clinical Impression: COPD exacerbation Condition: Stable Disposition: HOME, SELF-CARE Additional Instructions: Chronic Obstructive Lung Disease You have chronic obstructive lung disease (COPD). The symptoms come from emphysema (damage to small airways, with trapping of air in large sacks in the lung) and chronic bronchitis (repeated infection and damage to larger airways). The cause is almost always cigarette smoking, although dust exposure, asthma, and infections contribute. You should avoid fumes, dust, and smoke (especially tobacco smoke). Your condition will flare from time to time. There is no cure, but the symptoms can be treated. Bronchodilators (asthma medicine) are often helpful. Antibiotics help when infection is present. When shortness of breath is severe, we may prescribe cortisone medication. If medicine doesn't help enough, we can arrange for you to have an oxygen tank at home. Notify your doctor at once if sputum becomes thick, foul, or bloody, if you develop a fever or chest pain, or if your shortness of breath worsens. Your seen today for a COPD exacerbation. Your chest x-ray was unremarkable and unchanged from previous. Your blood work was also normal. Please continue all of your medications as prescribed by your primary care provider. Please keep the follow-up you have with Dr. Barriga for Tuesday morning. Take the prednisone as prescribed. Return to the emergency department if you experience fever, worsening shortness of breath or difficulty breathing. Prescriptions: Prednisone [Deltasone 20 mg Tablet] 2 tab PO DAILY 5 Days #10 tablet Referrals: ALBAN BARRIGA DO [Primary Care Provider] - Follow up as needed
--- NOTE | 2018-10-25 12:00 | EKG REPORT ---
SEVERITY:- OTHERWISE NORMAL ECG - SINUS RHYTHM BORDERLINE RIGHT AXIS DEVIATION : Confirmed by: Flower Ha 25-Oct-2018 11:59:46
--- NOTE | 2018-10-25 12:23 | RADIOLOGY REPORT (SQ) ---
EXAM DESCRIPTION: CHEST SINGLE VIEW COMPLETED DATE/TIME: 10/25/2018 12:11 pm REASON FOR STUDY: Coughing yellow sputum COMPARISON: CT angio chest 10/21/2018 Chest films 10/21/2018 EXAM PARAMETERS: NUMBER OF VIEWS: One view. TECHNIQUE: Single frontal radiographic view of the chest acquired. RADIATION DOSE: NA LIMITATIONS: None. FINDINGS: LUNGS AND PLEURA: No opacities, masses or pneumothorax. No pleural effusion. MEDIASTINUM AND HILAR STRUCTURES: No masses. Contour normal. HEART AND VASCULAR STRUCTURES: Heart normal in size. Normal vasculature. BONES: No acute findings. HARDWARE: None in the chest. OTHER: No other significant finding. IMPRESSION: NO ACUTE RADIOGRAPHIC FINDING IN THE CHEST. TECHNICAL DOCUMENTATION: JOB ID: [id number] [employer]- All Rights Reserved Reading location - IP/workstation name: [email or web address]
[2018-10-25] MEDS: ALBUTEROL SULFATE 0.083% NEB 2.5 MG/3 ML AMPUL NEB SCH ×2 (12:35→13:30)
[2018-10-25 14:49] LABS: ABSOLUTE BASOPHILS # (AUTO) 0.1 10^3/uL (0.0-0.2); ABSOLUTE EOSINOPHILS # (AUTO) 1.9 10^3/uL (0.0-0.6); ABSOLUTE NEUT (AUTO) 5.1 10^3/uL (1.7-8.2); BASOPHILS % (AUTO) 1.4 % (0-2); EOSINOPHILS % (AUTO) 20.8 % (0-6); HEMATOCRIT 43.6 % (37.9-51.0); HEMOGLOBIN 15.2 g/dL (13.5-17.0); LYMPHOCYTES % (AUTO) 11.1 % (13-45); MEAN CORPUSCULAR HEMOGLOBIN 31.5 pg (27.0-33.4); MEAN CORPUSCULAR VOLUME 90 fl (80-97); MONOCYTES % (AUTO) 10.8 % (3-13); PLATELET COUNT 522 10^3/uL (150-450); RED BLOOD COUNT 4.84 10^6/uL (4.35-5.55); RED CELL DISTRIBUTION WIDTH 12.7 % (11.5-14.0); SEGMENTED NEUTROPHILS % (AUTO) 55.9 % (42-78); TOTAL CELLS COUNTED % (AUTO) 100 %; WHITE BLOOD COUNT 9.2 10^3/uL (4.0-10.5)
[2018-10-25 15:04] LABS: ALANINE AMINOTRANSFERASE 26 U/L (21-72); ALBUMIN 4.5 g/dL (3.5-5.0); ALKALINE PHOSPHATASE 91 U/L (38-126); ANION GAP 11 (5-19); ASPARTATE AMINO TRANSFERASE 31 U/L (17-59); BILIRUBIN,DIRECT 0.3 mg/dL (0.0-0.4); BILIRUBIN,TOTAL 0.5 mg/dL (0.2-1.3); BLOOD UREA NITROGEN 21 mg/dL (7-20); CALCIUM 9.7 mg/dL (8.4-10.2); CARBON DIOXIDE 33 mmol/L (22-30); CHLORIDE 101 mmol/L (98-107); CREATINE KINASE 232 U/L (55-170); GLUCOSE 97 mg/dL (75-110); POTASSIUM 4.5 mmol/L (3.6-5.0); SODIUM 144.6 mmol/L (137-145)
[2018-10-25 15:13] LABS: CREATINE KINASE MB 2.08 ng/mL (<4.55)
[2018-10-25 15:17] LABS: TROPONIN I < 0.012 ng/mL
[2018-10-25 16:40] VITALS: BP 152/89
== END 2018-10-25 16:39 | disposition home or self-care (01) ==
LOC: ER 11:17
DX: J44.1 Chronic obstructive pulmonary disease with (acute) exacerbation (principal); R06.02 Shortness of breath; R05 Cough; I10 Essential (primary) hypertension; Z87.01 Personal history of pneumonia (recurrent)
CPT/HCPCS: 93005; 94640 ×2; 99285; 96374; 36415; 82553; 82550; 85025; 80053; 84484; 71045; 93010; J2930; A9270 ×2; J7620

== ENCOUNTER → 2019-05-11 | Outpatient (CLI) | payer MEDICARE ==
--- NOTE | 2019-05-11 12:01 | RADIOLOGY REPORT (SQ) ---
EXAM DESCRIPTION: CT HEAD WITHOUT COMPLETED DATE/TIME: 05/11/2019 11:42 am REASON FOR STUDY: G44.1 VASCULAR HEADACHE, NOT ELSEWHERE CLASSIFIED G44.1 VASCULAR HEADACHE, NOT EL SEWHERE CLASSIFIED COMPARISON: MRI brain 01/19/2018 TECHNIQUE: Axial images acquired through the brain without intravenous contrast. Images reviewed wi th bone, brain and subdural windows. Additional sagittal and coronal reconstructions were generated. Images stored on PACS. All CT scanners at this facility use dose modulation, iterative reconstruction, and/or weight based d osing when appropriate to reduce radiation dose to as low as reasonably achievable (ALARA). [facility]: Dose Right [facility]: CareDose [facility]: Dose Right [facility]: Teradose 4D [facility]: [employer] RADIATION DOSE: CT Rad equipment meets quality standard of care and radiation dose reduction techniq ues were employed. CTDIvol: 48.8 mGy. DLP: 1078 mGy-cm. mGy. LIMITATIONS: None. FINDINGS: VENTRICLES: Normal size and contour. CEREBRUM: No masses. No hemorrhage. No midline shift. No evidence for acute infarction. Mild spot ty chronic stable champagne/white matter differentiation. No areas of low density in the white matter. CEREBELLUM: No masses. No hemorrhage. No alteration of density. No evidence for acute infarction. EXTRAAXIAL SPACES: No fluid collections. No masses. ORBITS AND GLOBE: No intra- or extraconal masses. Normal contour of globe without masses. CALVARIUM: No fracture. PARANASAL SINUSES: Mucous membrane thickening and fluid in the bilateral maxillary and ethmoid sinuse s from sinusitis SOFT TISSUES: No mass or hematoma. OTHER: No other significant finding. IMPRESSION: Mild chronic stable spotty bifrontal and biparietal small vessel ischemic change. No acute findings intracranially. There is mucous membrane thickening and fluid in the bilateral maxillary and ethmoid sinuses from sin usitis. EVIDENCE OF ACUTE STROKE: NO. COMMENT: Quality ID # 436: Final reports with documentation of one or more dose reduction techniques (e.g., Automated exposure control, adjustment of the mA and/or kV according to patient size, use of iterative reconstruction technique) TECHNICAL DOCUMENTATION: JOB ID: [id number] [employer]- All Rights Reserved Reading location - IP/workstation name: [email or web address]
== END ==
LOC: RAD 11:31
PROVIDERS: ATTEND Family Medicine
DX: G44.1 Vascular headache, not elsewhere classified (principal)
CPT/HCPCS: 70450

== ENCOUNTER 2020-01-03 13:45 | Emergency (ER) | payer MEDICARE ==
[2020-01-03] MEDS ORDERED: MAGNESIUM SULFATE/D5W 1 GM/100 ML RTUPB IV ONE ×2 (13:48→18:50)
[2020-01-03] MEDS ORDERED: METHYLPREDNISOLONE INJ 125 MG/2 ML SDV IV ONE ×2 (13:48→18:50)
[2020-01-03] MEDS ORDERED: IPRATROPIUM/ALBUTEROL 0.5-2.5 MG/3 ML AMPUL NEB ONE (13:49)
--- NOTE | 2020-01-03 13:54 | ER Document Report ---
ED Medical Screen (RME) - General Chief Complaint: Shortness Of Breath Stated Complaint: DIFFICULTY BREATHING Primary Care Provider: ALBAN BARRIGA DO [Primary Care Provider] - Follow up as needed TRAVEL OUTSIDE OF THE [place] IN LAST 30 DAYS: No - HPI Notes: 01/03/20 13:53 Patient is a 69-year-old male with a history of hypertension and COPD (oxygen at nighttime and as needed) presents complaining of intermittent body spasms, left- sided chest pain/spasming, cough/backslash/wheezing which began last night. No fever or abdominal pain. I have treated and performed a rapid initial assessment of this patient. A comprehensive ED assessment and evaluation of the patient, analysis of test results and completion of medical decision making process will be conducted by additional ED providers. PHYSICAL EXAMINATION: GENERAL: Well-appearing, well-nourished and in no acute distress. A&Ox4. Answers questions appropriately. Heart: RRR Lungs: Wheezing and diminished throughout. No retractions. Extremities: No edema - Related Data Allergies/Adverse Reactions: No Known Allergies Allergy (Verified 10/25/18 11:20) Past Medical History - Social History Frequency of alcohol use: None Drug Abuse: None - Past Medical History Cardiac Medical History: Reports: Hx Hypercholesterolemia, Hx Hypertension Denies: Hx Coronary Artery Disease, Hx Heart Attack Pulmonary Medical History: Reports: Hx COPD, Hx Pneumonia Denies: Hx Asthma, Hx Bronchitis, Hx Tuberculosis Neurological Medical History: Denies: Hx Cerebrovascular Accident, Hx Seizures Endocrine Medical History: Denies: Hx Graves' Disease Renal/ Medical History: Denies: Hx Peritoneal Dialysis GI Medical History: Reports: Hx Gastroesophageal Reflux Disease, Hx Hiatal Hernia Musculoskeltal Medical History: Reports Hx Arthritis, Reports Hx Multiple Sclerosis Traumatic Medical History: Reports: Hx Fractures - Right hand in the Past Surgical History: Reports: Hx Orthopedic Surgery, Hx Tonsillectomy. Denies: Hx Herniorrhaphy, Hx Pacemaker - Immunizations Hx Diphtheria, Pertussis, Tetanus Vaccination: No Physical Exam - Vital signs Vitals: Temp Pulse Resp BP Pulse Ox 98.2 F 98 20 124/82 91 L 01/03/20 13:52 01/03/20 13:52 01/03/20 13:52 01/03/20 13:52 01/03/20 13:52 Course - Vital Signs Vital signs: Temp Pulse Resp BP Pulse Ox 98.2 F 98 20 124/82 91 L 01/03/20 13:52 01/03/20 13:52 01/03/20 13:52 01/03/20 13:52 01/03/20 13:52 Doctor's Discharge - Discharge Referrals: ALBAN BARRIGA DO [Primary Care Provider] - Follow up as needed
[2020-01-03 15:15] LABS: ABSOLUTE BASOPHILS # (AUTO) 0.1 10^3/uL (0.0-0.2); ABSOLUTE EOSINOPHILS # (AUTO) 0.4 10^3/uL (0.0-0.6); ABSOLUTE LYMPHOCYTES (AUTO) 1.3 10^3/uL (0.5-4.7); ABSOLUTE MONOCYTES (AUTO) 1.1 10^3/uL (0.1-1.4); BASOPHILS % (AUTO) 0.7 % (0-2); HEMATOCRIT 42.5 % (37.9-51.0); HEMOGLOBIN 14.5 g/dL (13.5-17.0); LYMPHOCYTES % (AUTO) 14.5 % (13-45); MEAN CORPUSCULAR HEMOGLOBIN 30.6 pg (27.0-33.4); MEAN CORPUSCULAR VOLUME 90 fl (80-97); MONOCYTES % (AUTO) 12.1 % (3-13); PLATELET COUNT 453 10^3/uL (150-450); RED BLOOD COUNT 4.73 10^6/uL (4.35-5.55); RED CELL DISTRIBUTION WIDTH 13.5 % (11.5-14.0); SEGMENTED NEUTROPHILS % (AUTO) 68.7 % (42-78); TOTAL CELLS COUNTED % (AUTO) 100 %; WHITE BLOOD COUNT 8.8 10^3/uL (4.0-10.5)
[2020-01-03 15:35] LABS: ALBUMIN 4.5 g/dL (3.5-5.0); ALKALINE PHOSPHATASE 91 U/L (38-126); ANION GAP 12 (5-19); ASPARTATE AMINO TRANSFERASE 26 U/L (17-59); BILIRUBIN,TOTAL 0.6 mg/dL (0.2-1.3); BLOOD UREA NITROGEN 23 mg/dL (7-20); CALCIUM 9.2 mg/dL (8.4-10.2); CARBON DIOXIDE 27 mmol/L (22-30); CHLORIDE 103 mmol/L (98-107); CREATINE KINASE 319 U/L (55-170); GLUCOSE 124 mg/dL (75-110); POTASSIUM 4.5 mmol/L (3.6-5.0); TOTAL PROTEIN 7.4 g/dL (6.3-8.2)
--- NOTE | 2020-01-03 15:43 | RADIOLOGY REPORT (SQ) ---
EXAM DESCRIPTION: CHEST 2 VIEWS COMPLETED DATE/TIME: 01/03/2020 2:43 pm REASON FOR STUDY: SOB COMPARISON: 10/25/2018 EXAM PARAMETERS: NUMBER OF VIEWS: two views TECHNIQUE: Digital Frontal and Lateral radiographic views of the chest acquired. RADIATION DOSE: NA LIMITATIONS: none FINDINGS: LUNGS AND PLEURA: No infiltrate or effusion. Cannot exclude a 6 mm suprahilar nodule on t he left. MEDIASTINUM AND HILAR STRUCTURES: No masses or contour abnormalities. HEART AND VASCULAR STRUCTURES: Heart normal size. No evidence for failure. BONES: No acute findings. HARDWARE: None in the chest. OTHER: No other significant finding. IMPRESSION: Cannot exclude a 6 mm suprahilar nodule on the left. COMMENT: [facility] CRITERIA FOR FOLLOW-UP OF PULMONARY NODULES Incidentally detected new nodules in persons 35 or older. HIGH RISK: History of smoking or other known risk factors. 6-8 mm single solid nodule: LOW RISK: CT 6-12 mo; then consider CT 18-24 mo. HIGH RISK: CT 6-12 mo; t hen CT 18-24 mo. TECHNICAL DOCUMENTATION: JOB ID: [id number] 2010 [employer]- All Rights Reserved Reading location - IP/workstation name: [email or web address]
[2020-01-03 15:47] LABS: NT PRO BNP 68 pg/mL (<125)
[2020-01-03 15:48] LABS: TROPONIN I < 0.012 ng/mL
[2020-01-03] MEDS ORDERED: RINGERS SOLUTION,LACTATED 1,000 ML IV ONE (19:14)
[2020-01-03] MEDS ORDERED: ALBUTEROL SULFATE 0.083% NEB 2.5 MG/3 ML AMPUL NEB ONE ×3 (19:29→20:38)
--- NOTE | 2020-01-03 19:34 | ER Document Report ---
ED General - General Chief Complaint: Shortness Of Breath Stated Complaint: DIFFICULTY BREATHING Time Seen by Provider: 01/03/20 18:51 Primary Care Provider: ALBAN BARRIGA DO [Primary Care Provider] - Follow up as needed Notes: 69-year-old male presents emergency department complaining of a flare of his emphysema. States that for the past few days he has been feeling like his muscles are very tight and starting to spasm, which he states usually precedes an emphysema flare, and today he developed increasing shortness of breath with increasing mucus, increased cough and the only pain that he has in his chest is the pain associated with muscle spasms throughout his entire body. Patient states that the shortness of breath is not going away with his usual medications. Denies any fever. States that the shortness of breath and the cough is worse at night. At night he does use 2 L oxygen via nasal cannula. TRAVEL OUTSIDE OF THE [place] IN LAST 30 DAYS: No - Related Data Allergies/Adverse Reactions: No Known Allergies Allergy (Verified 01/03/20 20:32) Past Medical History - General Information source: Patient - Social History Smoking Status: Never Smoker Frequency of alcohol use: None Drug Abuse: None Family History: Hypertension Patient has suicidal ideation: No Patient has homicidal ideation: No - Past Medical History Cardiac Medical History: Reports: Hx Hypercholesterolemia, Hx Hypertension Denies: Hx Coronary Artery Disease, Hx Heart Attack Pulmonary Medical History: Reports: Hx COPD, Hx Pneumonia Denies: Hx Asthma, Hx Bronchitis, Hx Tuberculosis Neurological Medical History: Denies: Hx Cerebrovascular Accident, Hx Seizures Endocrine Medical History: Denies: Hx Graves' Disease Renal/ Medical History: Denies: Hx Peritoneal Dialysis GI Medical History: Reports: Hx Gastroesophageal Reflux Disease, Hx Hiatal Hernia Musculoskeletal Medical History: Reports Hx Arthritis, Reports Hx Multiple Sclerosis Traumatic Medical History: Reports: Hx Fractures - Right hand in the 90's Past Surgical History: Reports: Hx Orthopedic Surgery, Hx Tonsillectomy. Denies: Hx Herniorrhaphy, Hx Pacemaker - Immunizations Hx Diphtheria, Pertussis, Tetanus Vaccination: No Hx Pneumococcal Vaccination: 11/13/10 Review of Systems - Review of Systems Constitutional: See HPI - Muscle spasms. EENT: No symptoms reported Cardiovascular: See HPI, Chest pain Respiratory: See HPI, Cough, Short of breath, Wheezing Gastrointestinal: No symptoms reported Musculoskeletal: See HPI -: Yes All other systems reviewed and negative Physical Exam - Vital signs Vitals: Temp Pulse Resp BP Pulse Ox 98.2 F 98 20 124/82 91 L 01/03/20 13:52 01/03/20 13:52 01/03/20 13:52 01/03/20 13:52 01/03/20 13:52 Interpretation: Hypoxic - Notes Notes: GENERAL: Alert, interacts well. Appears short of breath. HEAD: Normocephalic, atraumatic EYES: Pupils equal, round and reactive to light, extraocular movements intact. ENT: Oral mucosa moist, tongue midline. NECK: Full range of motion, supple, trachea midline. LUNGS: Diffuse expiratory wheezing, tachypnea, appears short of breath, some tripoding. HEART: Regular rate and rhythm, no murmurs, gallops, rubs. ABDOMEN: Soft, nontender, nondistended, bowel sounds present in all 4 quadrants. EXTREMITIES: Moves all 4 extremities spontaneously, no edema, radial and dorsalis pedis pulses 2/4 bilaterally. No cyanosis. NEUROLOGICAL: Alert and oriented x3, normal speech. PSYCH: Normal mood, normal affect. SKIN: Warm, Dry, normal turgor. Course - Re-evaluation Re-evalutation: 01/03/20 19:37 CBC unremarkable, CMP shows slightly worse creatinine compared to usual, slightly elevated magnesium at 2.5, cardiac enzymes negative, proBNP normal, chest x-ray reveals nodule that he already knows about. EKG is nonischemic. After 3 albuterol and Atrovent treatments, Solu-Medrol and magnesium patient is still having significantly wheezing, is 90% on room air while speaking to me, still appears quite short of breath. Discussed patient with Dr. Cohen who asked that I order an arterial blood gas and he states he will examine the patient for possible admission. 01/03/20 21:07 Reevaluated the patient after a fourth breathing treatment of albuterol [address] Cohen, patient is now able to lay back in bed, is no longer tripo ding, is no longer tachypneic, is able to hold a full conversation and only desaturates to 94%. Patient states he is feeling much better, patient will have 1 more breathing treatment as he does still have some persistent wheezing wheezing, will be ambulated and if he is still doing well will be discharged home on steroids. 01/03/20 22:14 Patient is feeling much better, has ambulated without any difficulty, will be discharged home on steroids and breathing treatments. - Vital Signs Vital signs: Temp Pulse Resp BP Pulse Ox 98.1 F 80 11 L 141/77 H 92 01/03/20 17:41 01/03/20 17:41 01/03/20 21:00 01/03/20 21:00 01/03/20 21:00 - Laboratory Result Diagrams: 01/03/20 14:43 01/03/20 14:43 Laboratory results interpreted by me: 01/03/20 01/03/20 01/03/20 14:43 14:43 20:19 Plt Count 453 H ABG pO2 59.7 L ABG HCO3 25.7 H ABG O2 Saturation 91.8 L BUN 23 H Creatinine 1.39 H Est GFR (MDRD) Non-Af 50 L Glucose 124 H Magnesium 2.5 H Creatine Kinase 319 H - EKG Interpretation by Me Additional EKG results interpreted by me: 01/03/20 19:38 EKG shows sinus rhythm at a rate of 99, slight right axis deviation, slightly prolonged QT interval, no ST segment elevations or depressions, there are T wave inversions noted in aVL per my interpretation. Discharge - Discharge Clinical Impression: COPD exacerbation Condition: Stable Disposition: HOME, SELF-CARE Additional Instructions: You should use your albuterol inhaler or an albuterol breathing treatment every 4 hours as needed. You may occasionally go up to every 2 hours but if you need to do this more than 2 times in a row please return to the emergency department. Please take the steroids as directed until they are gone. Please follow-up very closely with your primary care physician as an outpatient. Prescriptions: Prednisone [Deltasone 20 mg Tablet] 3 tab PO DAILY 5 Days tablet Referrals: ALBAN BARRIGA DO [Primary Care Provider] - Follow up in 3-5 days
[2020-01-03 20:29] LABS: ARTERIAL BLOOD BASE EXCESS 1.6 mmol/L; ARTERIAL BLOOD H2CO3 1.17 mmol/L (1.05-1.35); ARTERIAL BLOOD HCO3 25.7 mmol/L (20-24); ARTERIAL BLOOD O2 SATURATION 91.8 % (94-98); ARTERIAL BLOOD PCO2 38.8 mmHg (35-45); ARTERIAL BLOOD PH 7.44 (7.35-7.45); ARTERIAL BLOOD PO2 59.7 mmHg (80-100); ARTERIAL BLOOD TOTAL CO2 26.9 mmol/L (23-27)
[2020-01-03 20:32] LABS: ARTERIAL BLOOD FIO2 21%
[2020-01-03 23:01] VITALS: BP 136/98
--- NOTE | 2020-01-03 23:21 | EKG REPORT ---
SEVERITY:- BORDERLINE ECG - SINUS RHYTHM BORDERLINE RIGHT AXIS DEVIATION BORDERLINE T ABNORMALITIES, ANT-LAT LEADS BORDERLINE PROLONGED QT INTERVAL : Confirmed by: Mir Landrum MD 03-Jan-2020 23:20:38
== END 2020-01-03 23:01 | disposition home or self-care (01) ==
LOC: ER 13:45
DX: J43.9 Emphysema, unspecified (principal); R91.1 Solitary pulmonary nodule; M62.838 Other muscle spasm; R05 Cough; R06.02 Shortness of breath; I10 Essential (primary) hypertension; Z99.81 Dependence on supplemental oxygen; Z87.01 Personal history of pneumonia (recurrent)
CPT/HCPCS: 93005; 36415; 82803; 82550; 83735; 85025; 80053; 84484; 83880; 71046; 93010; 36600; J2930; J3475; J7120; A9270 ×2; J7620

== ENCOUNTER → 2020-04-11 | Outpatient (CLI) | payer MEDICARE ==
--- NOTE | 2020-04-11 11:51 | RADIOLOGY REPORT (SQ) ---
EXAM DESCRIPTION: CERV SP 4 OR 5 VIEWS IMAGES COMPLETED DATE/TIME: 04/11/2020 11:37 am REASON FOR STUDY: M54.2 CERVICALGIA M54.2 CERVICALGIA COMPARISON: None. NUMBER OF VIEWS: Five views. TECHNIQUE: AP, lateral, obliques and odontoid radiographic images acquired of the cervical spine. LIMITATIONS: None. FINDINGS: MINERALIZATION: Normal. ALIGNMENT: Anatomic. VERTEBRAE: Vertebral bodies of normal height. DISCS: Disc space narrowing at C4-5, C5-C6 and C6-C7. FORAMINA: Poorly visualized but there appears to be multilevel foraminal narrowing. LATERAL AND POSTERIOR ELEMENTS: Facets, lateral masses and spinous processes without significant find ings. HARDWARE: None in the spine. SOFT TISSUES: No masses or calcifications. Lung apices clear. OTHER: No other significant finding. IMPRESSION: Multilevel spondylosis with disc space narrowing. Suspect multilevel foraminal narrowkeara yaima TECHNICAL DOCUMENTATION: JOB ID: [id number] 2010 [employer]- All Rights Reserved Reading location - IP/workstation name: [email or web address]
== END ==
LOC: RAD 11:19
PROVIDERS: ATTEND Family Medicine
DX: M47.812 Spondylosis without myelopathy or radiculopathy, cervical region (principal); M48.02 Spinal stenosis, cervical region; M54.2 Cervicalgia
CPT/HCPCS: 72050

== ENCOUNTER → 2020-09-13 | Outpatient (CLI) | payer MEDICARE ==
--- NOTE | 2020-09-13 18:54 | RADIOLOGY REPORT (SQ) ---
EXAM DESCRIPTION: VENOUS UNILATERAL LOWER IMAGES COMPLETED DATE/TIME: 09/13/2020 5:30 pm REASON FOR STUDY: LLE SWELLING M79.89 OTHER SPECIFIED SOFT TISSUE DISORDERS COMPARISON: None. TECHNIQUE: Dynamic and static hcampagne scale and color images acquired of the left leg venous system. Se lected spectral images acquired with additional compression and augmentation maneuvers. The contralat eral common femoral vein and saphenofemoral junction were also imaged. Images stored on PACS. LIMITATIONS: None. FINDINGS: COMMON FEMORAL: Normal phasicity, compression and augmentation. No visualized echogenic ma terial on champagne scale. No defects on color images. FEMORAL: Normal compression and augmentation. No visualized echogenic material on champagne scale. No defe cts on color images. POPLITEAL: Normal compression, augmentation. No visualized echogenic material on champagne scale. No defec ts on color images. CALF VESSELS: Normal compression, augmentation. No visualized echogenic material on champagne scale. No de fects on color images. GSV and SSV: Normal compression, augmentation. No visualized echogenic material on champagne scale. No def ects on color images. ANY DEEP VENOUS INSUFFICIENCY: Not evaluated. ANY EVIDENCE OF POPLITEAL CYST: No. OTHER: No other significant finding. CONTRALATERAL COMMON FEMORAL VEIN AND SAPHENOFEMORAL JUNCTION: Normal phasicity, compression and augmentation. No visualized echogenic material on champagne scale. No de fects on color images. IMPRESSION: NO EVIDENCE DVT OR SVT IN THE LEFT LEG. TECHNICAL DOCUMENTATION: JOB ID: [id number] 2010 [employer]- All Rights Reserved Reading location - IP/workstation name: [email or web address]
== END ==
LOC: SP 15:23
PROVIDERS: ATTEND Nurse Practitioner Family
DX: M79.89 Other specified soft tissue disorders (principal)
CPT/HCPCS: 36415; 85379; 93971